=== PATIENT | male | born 1960 | race Caucasian/White ===

== ENCOUNTER 2018-01-18 14:46 | Inpatient (IN) | payer OTHER, MEDICAID ==
[~2018-01-18] VITALS: Ht 170.2 cm; Wt 91.3 kg
[~2018-01-18 14:46] MED LIST: ASPI-1159 PO; BENA40TA9 PO; GABA-531 PO; GEMF600T4 PO; INSU100V3 SQ; METF500T6 PO; NPH,100V SQ
[2018-01-18] MEDS ORDERED: ASPIRIN 325MG EC TABLET PO ONE (15:15)
[2018-01-18] MEDS ORDERED: SODIUM CHLORIDE 0.9% 1000ML BAG (SEPSIS BOLUS) IV ONE (15:15)
[2018-01-18 15:17] LABS: BASOPHILS % 0.2 % (0.0-2.0); EOSINOPHILS % 2.6 % (0.0-5.0); HEMATOCRIT. 40.2 % (42.0-52.0); HEMOGLOBIN. 13.8 g/dL (14.0-18.0); LYMPHOCYTES % 20.7 % (20.0-50.0); MEAN CORPUSCULAR HEMOGLOBIN 31.1 pg (28.0-32.0); MEAN CORPUSCULAR VOLUME 90.4 fL (80.0-94.0); MEAN PLATELET VOLUME 9.5 fl (7.4-10.4); MONOCYTES % 6.4 % (2.0-8.0); NEUTROPHILS % 70.1 % (40.0-76.0); PLATELET 188 x1000/uL (130-400); RED BLOOD CELL COUNT 4.45 mill/uL (4.7-6.1); RED CELL DISTRIBUTION WIDTH 14.6 % (11.6-14.6)
[2018-01-18 15:28] LABS: CHLORIDE 107 mEq/L (98-107)
[2018-01-18 15:52] LABS: INR 1.1; PROTHROMBIN TIME 11.2 sec (9.1-11.1)
[2018-01-18] MEDS ORDERED: VANCOMYCIN 1 G PREMIX 200 ML IV SCH (16:15)
[2018-01-18] MEDS ORDERED: SODIUM CHLORIDE 0.9% 1,000 ML IV ONE (16:15)
[2018-01-18] MEDS ORDERED: PIPERACILLIN SODIUM/TAZOBACTAM 4.5 G in DEXT 5% WATER 100 ML IV SCH (16:15)
[2018-01-18 18:01] LABS: CLARITY URINE CLEAR (CLEAR); COLOR URINE YELLOW (YELLOW); KETONES URINE NEGATIVE (NEGATIVE); LEUKOCYTE ESTERASE URINE NEGATIVE (NEGATIVE); NITRITE URINE NEGATIVE (NEGATIVE); OCCULT BLOOD URINE NEGATIVE (NEGATIVE); PH URINE 5.5 (4.5-8.0); PROTEIN URINE 1+ (NEGATIVE); SPECIFIC GRAVITY URINE 1.029 (1.005-1.030); UROBILINOGEN URINE 0.2 E.U./dL (0.2-1.0)
[2018-01-18] MEDS ORDERED: IOHEXOL-350 100 ML BOTTLE ONE (21:11)
[2018-01-18] MEDS ORDERED: HYDR-4001 PO (21:49)
[2018-01-18 22:06] VITALS: BP 112/70
[2018-01-18] MEDS ORDERED: ONDANSETRON HCL 4MG/2ML INJ IV PRN (22:30)
[2018-01-18] MEDS ORDERED: HYDROCODONE/ACETAMINOPHEN 10/325MG TABLET PO PRN (22:30)
[2018-01-18] MEDS ORDERED: CLONIDINE 0.1MG TABLET PO PRN (22:30)
[2018-01-18] MEDS ORDERED: HYDROMORPHONE HCL/PF 2MG/ML CPJ IV PRN (22:30)
[2018-01-18] MEDS ORDERED: LORAZEPAM 2MG/ML CPJ IV PRN (22:30)
[2018-01-18] MEDS: ACETAMINOPHEN 325MG TABLET PO PRN (22:50)
[2018-01-18] MEDS: SODIUM CHLORIDE 0.9% 1,000 ML IV SCH (22:52)
[2018-01-18] MEDS ORDERED: ENOXAPARIN 40MG/0.4ML SYR SUBCUT SCH (23:00)
[2018-01-18 23:09] VITALS: BP 112/70
[2018-01-19] VITALS (11 sets, daily range): BP systolic 100–155; BP diastolic 57–87
[2018-01-19 06:57] LABS: BASOPHILS % 0.3 % (0.0-2.0); EOSINOPHILS % 4.9 % (0.0-5.0); HEMATOCRIT. 39.6 % (42.0-52.0); HEMOGLOBIN. 13.7 g/dL (14.0-18.0); LYMPHOCYTES % 34.8 % (20.0-50.0); MEAN CORPUSCULAR HEMOGLOBIN 31.3 pg (28.0-32.0); MEAN CORPUSCULAR VOLUME 90.3 fL (80.0-94.0); MEAN PLATELET VOLUME 9.4 fl (7.4-10.4); MONOCYTES % 5.9 % (2.0-8.0); NEUTROPHILS % 54.1 % (40.0-76.0); PLATELET 161 x1000/uL (130-400); RED BLOOD CELL COUNT 4.38 mill/uL (4.7-6.1); RED CELL DISTRIBUTION WIDTH 14.7 % (11.6-14.6)
[2018-01-19] MEDS ORDERED: DEXTROSE 50% WATER 50ML SYRINGE IV PRN (07:00)
[2018-01-19 07:57] LABS: CHLORIDE 110 mEq/L (98-107)
[2018-01-19 08:13] LABS: CREATINE KINASE 125 IU/L (39-308); CREATINE KINASE MB FRACTION 1.1 ng/mL (0.5-3.6); PHOSPHORUS 2.7 mg/dL (2.5-4.9)
[2018-01-19] MEDS: INSULIN LISPRO 100 UNITS/ML SUBCUT SCH ×4 (08:14→21:36)
[2018-01-19] MEDS: SODIUM CHLORIDE 0.9% 1,000 ML IV SCH ×2 (08:25→23:28)
[2018-01-19] MEDS ORDERED: MAGNESIUM SULFATE 2 GM in DEXTROSE 5% WATER 50 ML IV SCH (09:00)
[2018-01-19] MEDS ORDERED: REGADENOSON 0.4 MG/5 ML IV SCH (09:15)
[2018-01-19 10:50] LABS: T4 FREE 0.97 ng/dL (0.76-1.46)
[2018-01-19] MEDS ORDERED: REGADENOSON 0.4 MG/5 ML IV ONE (11:27)
[2018-01-19] MEDS: BLOOD SUGAR DIAGNOSTIC STRIP TEST SCH ×3 (11:50→21:30)
[2018-01-19] MEDS ORDERED: MAGNESIUM SULFATE 2 GM in SODIUM CHLORIDE 0.9% 50 ML IV SCH (12:00)
[2018-01-19] MEDS: MAGNESIUM 1 G PREMIX 100 ML IV SCH ×2 (15:04→16:17)
[2018-01-19 15:30] LABS: *AMPHETAMINES SCREEN URINE NEGATIVE (NEGATIVE); *BARBITURATES SCREEN URINE NEGATIVE (NEGATIVE); *BENZODIAZEPINES SCREEN URINE NEGATIVE (NEGATIVE); *COCAINE SCREEN URINE NEGATIVE (NEGATIVE)
[2018-01-19 15:32] LABS: CANNABINOID URINE SCREEN NEGATIVE (NEGATIVE); METHADONE URINE SCREEN NEGATIVE (NEGATIVE); OPIATES URINE SCREEN NEGATIVE (NEGATIVE); PHENCYCLIDINE URINE SCREEN NEGATIVE (NEGATIVE)
[2018-01-19 16:07] LABS: CREATINE KINASE 127 IU/L (39-308); CREATINE KINASE MB FRACTION 1.5 ng/mL (0.5-3.6)
[2018-01-19] MEDS: ENOXAPARIN 30MG/0.3ML SYR SUBCUT SCH (21:27)
[2018-01-20] VITALS (12 sets, daily range): BP systolic 112–152; BP diastolic 71–86
[2018-01-20 05:55] LABS: BASOPHILS % 0.3 % (0.0-2.0); HEMATOCRIT. 39.3 % (42.0-52.0); HEMOGLOBIN. 13.6 g/dL (14.0-18.0); LYMPHOCYTES % 39.6 % (20.0-50.0); MEAN CORPUSCULAR HEMOGLOBIN 31.3 pg (28.0-32.0); MEAN CORPUSCULAR VOLUME 90.2 fL (80.0-94.0); MEAN PLATELET VOLUME 9.4 fl (7.4-10.4); MONOCYTES % 7.4 % (2.0-8.0); NEUTROPHILS % 46.7 % (40.0-76.0); PLATELET 154 x1000/uL (130-400); RED BLOOD CELL COUNT 4.36 mill/uL (4.7-6.1); RED CELL DISTRIBUTION WIDTH 14.6 % (11.6-14.6)
[2018-01-20 05:58] LABS: CHLORIDE 104 mEq/L (98-107)
[2018-01-20 06:12] LABS: PHOSPHORUS 2.1 mg/dL (2.5-4.9)
[2018-01-20] MEDS: BLOOD SUGAR DIAGNOSTIC STRIP TEST SCH ×4 (06:32→20:44)
[2018-01-20] MEDS: INSULIN LISPRO 100 UNITS/ML SUBCUT SCH ×4 (06:32→20:53)
[2018-01-20] MEDS: ACETAMINOPHEN 325MG TABLET PO PRN (07:26)
[2018-01-20] MEDS: ENOXAPARIN 30MG/0.3ML SYR SUBCUT SCH ×2 (07:27→20:52)
[2018-01-20] MEDS ORDERED: MAGNESIUM 4 G PREMIX 100 ML IV ONE (09:00)
[2018-01-20] MEDS ORDERED: ASPIRIN 81MG TABLET PO SCH (09:00)
[2018-01-20] MEDS ORDERED: SODIUM PHOS,M-BASIC-D-BASIC 20 MM in DEXT 5% WATER 243.3333 ML IV SCH (09:00)
[2018-01-20] MEDS ORDERED: MAGNESIUM 1 G PREMIX 100 ML IV SCH (09:30)
[2018-01-20] MEDS: MAGNESIUM OXIDE 400MG TABLET PO SCH (10:04)
[2018-01-21] VITALS (10 sets, daily range): BP systolic 117–152; BP diastolic 75–98
[2018-01-21] MEDS: BLOOD SUGAR DIAGNOSTIC STRIP TEST SCH ×3 (06:09→16:55)
[2018-01-21] MEDS: ENOXAPARIN 30MG/0.3ML SYR SUBCUT SCH (07:45)
[2018-01-21] MEDS: MAGNESIUM OXIDE 400MG TABLET PO SCH (07:45)
[2018-01-21] MEDS: INSULIN LISPRO 100 UNITS/ML SUBCUT SCH ×3 (07:46→16:57)
[2018-01-21 13:21] LABS: CHLORIDE 99 mEq/L (98-107)
[2018-01-21] MEDS ORDERED: MAGNESIUM 1 G PREMIX 100 ML IV NR (14:00)
== END 2018-01-21 17:55 | disposition home health service (06) | DRG 203 ==
LOC: ER 14:46 → 3WST 18:08 → EDBEDREQ 18:11 → ENRESERV 18:40
PROVIDERS: ADMIT Internal Medicine Nephrology; ATTEND Internal Medicine Nephrology
DX: M94.0 Chondrocostal junction syndrome [Tietze] (principal); N17.9 Acute kidney failure, unspecified; E87.2 Acidosis; E83.42 Hypomagnesemia; M48.02 Spinal stenosis, cervical region; I25.10 Atherosclerotic heart disease of native coronary artery without angina pectoris; E11.9 Type 2 diabetes mellitus without complications; E78.00 Pure hypercholesterolemia, unspecified; E78.5 Hyperlipidemia, unspecified; G89.29 Other chronic pain; I10 Essential (primary) hypertension; I25.2 Old myocardial infarction; M47.896 Other spondylosis, lumbar region; Z86.73 Personal history of transient ischemic attack (TIA), and cerebral infarction without residual deficits; Z90.49 Acquired absence of other specified parts of digestive tract; E66.9 Obesity, unspecified; Z68.31 Body mass index [BMI] 31.0-31.9, adult
CPT/HCPCS: 36415; 70551; 71045; 71275; 72141; 72148; 78452; 80048; 80053; 80061; 80305; 81003; 82550; 82553; 82962; 83036; 83605; 83690; 83735; 83880; 84100; 84439; 84443; 84484; 85025; 85379; 85610; 87040; 87086; 93005; 93017; 93306; 93970; 96361; 96365; 96366; 96368; 97162; 99291; A9500; J1170; J1650; J1815; J2543; J2785; J3370; J3475; J3490; J7030; J7040; J7050; J7060; Q9967

== ENCOUNTER 2020-07-18 10:53 | Emergency (ER) | payer MEDICAID ==
[~2020-07-18 10:53] MED LIST changes: -ASPI-1159 PO; +ASPI-1497 PO; -GABA-531 PO; +GABA-532 PO; -GEMF600T4 PO; +GEMF600T90 PO; +HYDR-4001 PO; +METF-414 PO; -METF500T6 PO
== END 2020-07-18 11:35 | disposition left against medical advice (07) ==
LOC: ER 11:04
DX: Z53.21 Procedure and treatment not carried out due to patient leaving prior to being seen by health care provider (principal)

== ENCOUNTER 2020-12-21 18:27 | Inpatient (IN) | payer MEDICAID ==
[~2020-12-21] VITALS: Ht 157.5 cm; Wt 92.8 kg
[2020-12-21] MEDS ORDERED: ONDANSETRON HCL 4MG/2ML INJ IV STA (22:54)
[2020-12-21] MEDS ORDERED: MORPHINE SULFATE 4 MG/ML CPJ (NOT FOR IM USE) IV STA (22:54)
[2020-12-21] MEDS ORDERED: FAMOTIDINE 20MG/2ML VIAL IV STA (22:54)
[2020-12-21] MEDS ORDERED: SODIUM CHLORIDE 0.9% 1,000 ML IV ONE (23:00)
[2020-12-21 23:37] LABS: HEMOGLOBIN. 13.3 g/dL (14.0-18.0); MEAN CORPUSCULAR HEMOGLOBIN 31.5 pg (28.0-32.0); MEAN CORPUSCULAR VOLUME 89.9 fL (80.0-94.0); MEAN PLATELET VOLUME 8.8 fl (7.4-10.4); PLATELET 180 x1000/uL (130-400); RED BLOOD CELL COUNT 4.23 mill/uL (4.7-6.1); RED CELL DISTRIBUTION WIDTH 15.9 % (11.6-14.6)
[2020-12-21 23:40] LABS: CHLORIDE 107 mEq/L (98-107)
[2020-12-21] MEDS ORDERED: MORPHINE SULFATE 2 MG/ML CPJ (NOT FOR IM USE) IV NR (23:59)
[2020-12-22 01:49] LABS: NUCLEATED RED BLOOD CELLS 2 /100 WBC; PLATELET ESTIMATE NORMAL
[2020-12-22 02:20] LABS: CLARITY URINE CLOUDY (CLEAR); COLOR URINE DARK YELLOW (YELLOW); KETONES URINE 1+ (NEGATIVE); LEUKOCYTE ESTERASE URINE TRACE (NEGATIVE); NITRITE URINE NEGATIVE (NEGATIVE); OCCULT BLOOD URINE NEGATIVE (NEGATIVE); PROTEIN URINE 2+ (NEGATIVE); SPECIFIC GRAVITY URINE 1.026 (1.005-1.030)
[2020-12-22] MEDS ORDERED: HYDROCODONE/ACETAMINOPHEN 5/325MG TABLET PO PRN (02:45)
[2020-12-22] MEDS ORDERED: ACETAMINOPHEN 325MG TABLET PO PRN (02:45)
[2020-12-22] MEDS ORDERED: DOCUSATE SODIUM 100MG CAPSULE PO PRN (02:45)
[2020-12-22] MEDS ORDERED: CLONIDINE 0.1MG TABLET PO PRN (02:45)
[2020-12-22] MEDS ORDERED: ONDANSETRON HCL 4MG/2ML INJ IV PRN (02:45)
[2020-12-22] MEDS ORDERED: MAGNESIUM/ALUMINUM HYDROXIDE/SIMETHICONE 30ML UDC PO PRN (02:45)
[2020-12-22] MEDS ORDERED: HYDROMORPHONE HCL/PF 2MG/ML CPJ IV PRN (02:45)
[2020-12-22] MEDS ORDERED: SODIUM CHLORIDE 0.45% 1,000 ML IV SCH (05:00)
[2020-12-22] MEDS ORDERED: MORPHINE SULFATE 2 MG/ML CPJ (NOT FOR IM USE) IV ONE (05:45)
[2020-12-22 08:30] VITALS: BP 113/70
[2020-12-22 09:00] VITALS: BP 111/57
[2020-12-22] MEDS ORDERED: ENOXAPARIN 30MG/0.3ML SYR SUBCUT SCH (09:00)
[2020-12-22 12:00] VITALS: BP 129/75
[2020-12-22 15:53] VITALS: BP 129/75
[2020-12-23] MEDS ORDERED: ENOXAPARIN 40MG/0.4ML SYR SUBCUT SCH (09:00)
== END 2020-12-22 16:27 | disposition home or self-care (01) ==
LOC: ER 18:27 → 6EST 12-22 02:38 → EDBEDREQ 12-22 02:47 → EDBEDREQTM 12-22 02:47 → ENRESERV 12-22 07:47
PROVIDERS: ADMIT Hospitalist; ATTEND Hospitalist
DX: K80.20 Calculus of gallbladder without cholecystitis without obstruction (principal); E11.22 Type 2 diabetes mellitus with diabetic chronic kidney disease; E78.00 Pure hypercholesterolemia, unspecified; E78.5 Hyperlipidemia, unspecified; N18.9 Chronic kidney disease, unspecified; Z79.891 Long term (current) use of opiate analgesic; Z79.899 Other long term (current) drug therapy; Z79.82 Long term (current) use of aspirin; Z79.4 Long term (current) use of insulin; Z82.49 Family history of ischemic heart disease and other diseases of the circulatory system
CPT/HCPCS: 36415; 71045; 74176; 80053; 81003; 82962; 83605; 84484; 85025; 93005; 99285; J1650; J2270; J2405; J3490; J7030

== ENCOUNTER 2022-12-19 19:36 | Emergency (ER) | payer MEDICAID ==
[~2022-12-19] VITALS: Ht 167.6 cm; Wt 110.0 kg
[~2022-12-19 19:36] MED LIST changes: -BENA40TA9 PO; +BENA40TA91 PO
[2022-12-19 20:31] VITALS: O2SAT 98
[2022-12-19] MEDS ORDERED: KETOROLAC 60MG/2ML VIAL IM ONE (21:00)
[2022-12-19 21:19] LABS: CHLORIDE 102 mEq/L (98-107); INDEX HEMOLYSI 1 (1-3); INDEX ICTERIC 1 (1-4); INDEX LIPEMIC 1 (1-3); POTASSIUM 3.7 mEq/L (3.5-5.1); SODIUM 135 mEq/L (136-145)
[2022-12-19 21:21] LABS: CALCIUM 9.5 mg/dL (8.5-10.1)
[2022-12-19 21:25] LABS: CARBON DIOXIDE 27 mEq/L (21-32); CREATININE 0.9 mg/dL (0.6-1.3); GLUCOSE 231 mg/dL (70-105); UREA NITROGEN BLOOD 22 mg/dL (7-21)
[2022-12-20] MEDS ORDERED: NAPR-1164 MT (00:08)
[2022-12-20 00:47] VITALS: BP 128/77; PULSE 73; RESP 16; TEMP 98.7
== END 2022-12-20 00:53 | disposition home or self-care (01) ==
LOC: ER 19:36
DX: M54.50 Low back pain, unspecified (principal); E11.9 Type 2 diabetes mellitus without complications; E78.00 Pure hypercholesterolemia, unspecified; Z79.899 Other long term (current) drug therapy; W18.39XA Other fall on same level, initial encounter; Y93.89 Activity, other specified; Y92.89 Other specified places as the place of occurrence of the external cause; Y99.8 Other external cause status
CPT/HCPCS: 80048; 36415; 73502; 72070; 72100; 96372; 99284; J1885; Z7610 ×2

== ENCOUNTER 2023-01-22 07:49 | Emergency (ER) | payer MEDICAID ==
[~2023-01-22] VITALS: Ht 167.6 cm; Wt 93.0 kg
[~2023-01-22 07:49] MED LIST changes: +NAPR-1164 MT
[2023-01-22 07:54] VITALS: O2SAT 99
[2023-01-22 09:10] LABS: BASOPHILS % 0.2 % (0.0-2.0); EOSINOPHILS % 1.8 % (0.0-5.0); HEMATOCRIT. 43.6 % (42.0-52.0); HEMOGLOBIN. 14.7 g/dL (14.0-18.0); MEAN CORPUSCULAR HEMOGLOBIN 29.4 pg (28.0-32.0); MEAN CORPUSCULAR HGB CONC 33.8 g/dL (31.0-37.0); MEAN CORPUSCULAR VOLUME 87.1 fL (80.0-94.0); MEAN PLATELET VOLUME 9.1 fl (7.4-10.4); MONOCYTES % 6.3 % (2.0-8.0); NEUTROPHILS % 78.7 % (40.0-76.0); PLATELET 181 x1000/uL (130-400); RED CELL DISTRIBUTION WIDTH 15.2 % (11.6-14.6); WHITE BLOOD COUNT 9.9 x1000/uL (4.5-11.0)
[2023-01-22 09:17] LABS: CHLORIDE 100 mEq/L (98-107); INDEX HEMOLYSI 1 (1-3); INDEX ICTERIC 1 (1-4); INDEX LIPEMIC 1 (1-3); SODIUM 134 mEq/L (136-145)
[2023-01-22 09:25] LABS: ALANINE AMINOTRANSFERASE 28 IU/L (13-61); ALBUMIN 3.7 g/dL (3.4-5.0); ASPARTATE AMINOTRANSFERASE 25 IU/L (15-37); BILIRUBIN TOTAL 1.1 mg/dL (0.1-1.0); CALCIUM 9.5 mg/dL (8.5-10.1); CARBON DIOXIDE 28 mEq/L (21-32); CREATININE 1.1 mg/dL (0.6-1.3); GLUCOSE 300 mg/dL (70-105); PROTEIN TOTAL 8.8 g/dL (6.0-8.3); UREA NITROGEN BLOOD 24 mg/dL (7-21)
[2023-01-22 11:20] LABS: CLARITY URINE CLEAR (CLEAR); COLOR URINE YELLOW (YELLOW); GLUCOSE URINE 3+ (NEGATIVE); KETONES URINE 1+ (NEGATIVE); LEUKOCYTE ESTERASE URINE NEGATIVE (NEGATIVE); NITRITE URINE NEGATIVE (NEGATIVE); OCCULT BLOOD URINE NEGATIVE (NEGATIVE); PH URINE 6.5 (4.5-8.0); PROTEIN URINE 1+ (NEGATIVE); SPECIFIC GRAVITY URINE 1.034 (1.005-1.030)
[2023-01-22 11:22] LABS: BACTERIA URINE NONE SEEN; SQUAMOUS EPITHELIAL CELL URINE NONE SEEN /lpf (RARE/1+); YEAST URINE NONE SEEN
[2023-01-22 11:39] LABS: RBC URINE 0-2 /hpf (0-2); WBC URINE 0-2 /hpf (0-2)
[2023-01-22] MEDS ORDERED: LIDOCAINE 5% PATCH TOP SCH (13:00)
[2023-01-22] MEDS ORDERED: DIAZEPAM 5 MG TABLET PO ONE (13:00)
[2023-01-22] MEDS ORDERED: CYCL10TA21 MT (14:08)
[2023-01-22 14:26] VITALS: BP 141/87; PULSE 91; RESP 18; TEMP 98.1
== END 2023-01-22 14:27 | disposition home or self-care (01) ==
LOC: ER 07:49
DX: M54.50 Low back pain, unspecified (principal); E11.9 Type 2 diabetes mellitus without complications; E78.00 Pure hypercholesterolemia, unspecified; I10 Essential (primary) hypertension; Z98.890 Other specified postprocedural states
CPT/HCPCS: 80053; 81003; 83690; 85025; 36415; 93005; 99284; Z7610

== ENCOUNTER 2023-09-13 09:27 | Emergency (ER) | payer MEDICAID ==
[~2023-09-13] VITALS: Ht 167.6 cm; Wt 98.0 kg
[~2023-09-13 09:27] MED LIST changes: +CYCL10TA21 MT
[2023-09-13 09:40] VITALS: O2SAT 94
[2023-09-13] MEDS ORDERED: ACET-2708 MT (11:38)
[2023-09-13] MEDS ORDERED: CYCL5TAB MT (11:38)
[2023-09-13 11:46] VITALS: BP 124/70; PULSE 88; RESP 16; TEMP 97.7
== END 2023-09-13 11:54 | disposition home or self-care (01) ==
LOC: ER 09:27
DX: S16.1XXA Strain of muscle, fascia and tendon at neck level, initial encounter (principal); S09.90XA Unspecified injury of head, initial encounter; E11.9 Type 2 diabetes mellitus without complications; E78.00 Pure hypercholesterolemia, unspecified; I10 Essential (primary) hypertension; Z79.899 Other long term (current) drug therapy; Z79.82 Long term (current) use of aspirin; Y04.0XXA Assault by unarmed brawl or fight, initial encounter; Y93.89 Activity, other specified; Y92.89 Other specified places as the place of occurrence of the external cause; Y99.8 Other external cause status
CPT/HCPCS: 99284

== ENCOUNTER 2024-01-24 17:21 | Emergency (ER) | payer MEDICAID, OTHER ==
[~2024-01-24] VITALS: Ht 175.3 cm; Wt 98.0 kg
[~2024-01-24 17:21] MED LIST changes: +ACET-2708 MT; +CYCL5TAB MT
[2024-01-24 17:29] VITALS: O2SAT 92
[2024-01-24] MEDS: ACETAMINOPHEN 325MG TABLET PO ONE (19:00)
[2024-01-24] MEDS: KETOROLAC 30MG/ML VIAL IM ONE (20:30)
[2024-01-24] MEDS: METHOCARBAMOL 500MG TABLET PO ONE (20:30)
[2024-01-24] MEDS ORDERED: NAPR-1164 MT (21:08)
[2024-01-24] MEDS ORDERED: CYCL10TA21 MT (21:08)
[2024-01-24 21:43] VITALS: BP 124/74; PULSE 79; RESP 18; TEMP 37.16964; O2SAT 96
== END 2024-01-24 21:45 | disposition home or self-care (01) ==
LOC: ER 17:21
DX: S70.02XA Contusion of left hip, initial encounter (principal); S70.01XA Contusion of right hip, initial encounter; S13.4XXA Sprain of ligaments of cervical spine, initial encounter; S83.92XA Sprain of unspecified site of left knee, initial encounter; I10 Essential (primary) hypertension; E78.00 Pure hypercholesterolemia, unspecified; E11.9 Type 2 diabetes mellitus without complications; Z79.82 Long term (current) use of aspirin; Z79.84 Long term (current) use of oral hypoglycemic drugs; Z79.899 Other long term (current) drug therapy; W18.39XA Other fall on same level, initial encounter; Y93.89 Activity, other specified; Y92.89 Other specified places as the place of occurrence of the external cause; Y99.8 Other external cause status
CPT/HCPCS: 73522; 73030; 73562; 70450; 72125; 96372; 99285; J1885; Z7610